=== PATIENT | male | born 1955 | race Caucasian/White ===

== ENCOUNTER 2022-06-26 18:52 | Emergency (ER) | payer OTHER ==
[2022-06-26 19:39] VITALS: BMI 25.0
[2022-06-26 19:52] VITALS: TEMP 99.9
[2022-06-26] MEDS ORDERED: PANTOPRAZOLE SODIUM 40 MG VIAL IVPUSH ONE (19:55)
[2022-06-26] MEDS ORDERED: PANTOPRAZOLE SODIUM 80 MG in SODIUM CHLORIDE 100 ML IVPB SCH (19:56)
[2022-06-26] MEDS ORDERED: PANTOPRAZOLE SODIUM 40 MG VIAL ONE (20:31)
[2022-06-26] MEDS ORDERED: OCTREOTIDE ACETATE 50 MCG/1 ML - 1 ML VIAL IVPUSH ONE (20:56)
[2022-06-26] MEDS ORDERED: OCTREOTIDE ACETATE 200 MCG, OCTREOTIDE ACETATE 1,000 MCG in DEXTROSE 5%-WATER - 496 ML IVPB SCH (21:00)
[2022-06-26 21:10] LABS: BASO % 0.2 % (0-2.0); EOS % 0.9 % (0-4.5); HEMATOCRIT 28.6 % (35.4-49); HEMOGLOBIN 9.4 GM/dL (11.7-16.9); LYMPH % 12.6 % (8-40); MCH 32.5 pg (25.7-33.7); MCHC 32.7 g/dl (32.0-35.9); MEAN CELL VOLUME 99.5 fl (80-96); MEAN PLT VOLUME 8.6 fl (7.5-11.1); MONO % 13.3 % (3.8-10.2); PLATELET COUNT 72 10^3/uL (134-434); RBC 2.87 M/mm3 (4.00-5.60); RDW 18.4 % (11.9-15.9); WHITE BLOOD COUNT 7.3 K/mm3 (4.0-10.0)
[2022-06-26 21:14] LABS: INR 1.88 (0.83-1.09); PROTHROMBIN TIME (PATIENT) 21.8 SEC (9.7-13.0)
[2022-06-26 21:17] LABS: ACTIVATED PTT 34.7 SECONDS (25.2-36.5)
[2022-06-26] MEDS ORDERED: OCTREOTIDE ACETATE 100 MCG/1 ML ONE (21:19)
[2022-06-26 21:41] LABS: ALBUMIN 2.5 g/dl (3.4-5.0); CALCIUM 8.1 mg/dL (8.5-10.1)
[2022-06-26 21:42] LABS: BLOOD UREA NITROGEN 33.4 mg/dL (7-18)
[2022-06-26] MEDS ORDERED: RAPID SEQUENCE INTUBATION KIT NR ONE (21:42)
[2022-06-26 21:44] LABS: CREATININE 0.8 mg/dL (0.55-1.3)
[2022-06-26 21:46] LABS: BILIRUBIN,TOTAL 1.2 mg/dL (0.2-1); LACTIC ACID 3.2 mmol/L (0.4-2.0); TOT PROT 6.8 g/dl (6.4-8.2)
[2022-06-26] MEDS ORDERED: MIDAZOLAM IN 0.9 % SOD.CHLORID 100 MG/100 ML PLAST..BAG IVPB SCH (22:30)
[2022-06-26] MEDS ORDERED: CEFTRIAXONE 1,000 MG in DEXTROSE 5%-WATER - 50 ML IVPB ONE (22:31)
[2022-06-26] MEDS ORDERED: FENTANYL CITRATE/PF 50 MCG/ML VIAL ONE (23:03)
[2022-06-27 00:09] VITALS: RESP 20
[2022-06-27] MEDS ORDERED: MIDAZOLAM HCL 2 MG/2 ML SINGLE DOSE VIAL IVPUSH ONE (00:15)
[2022-06-27 00:18] VITALS: BP 128/71; PULSE 98
== END 2022-06-26 23:31 | disposition short-term general hospital (02) ==
LOC: JER 18:52
PROC: 3E03329 Introduction of Other Anti-infective into Peripheral Vein, Percutaneous Approach (ICD-10-PCS; principal; 2022-06-26)
PROC: 3E033NZ Introduction of Analgesics, Hypnotics, Sedatives into Peripheral Vein, Percutaneous Approach (ICD-10-PCS; 2022-06-26)
PROC: 3E033NZ Introduction of Analgesics, Hypnotics, Sedatives into Peripheral Vein, Percutaneous Approach (ICD-10-PCS; 2022-06-26)
PROC: 3E033GC Introduction of Other Therapeutic Substance into Peripheral Vein, Percutaneous Approach (ICD-10-PCS; 2022-06-26)
PROC: 3E033GC Introduction of Other Therapeutic Substance into Peripheral Vein, Percutaneous Approach (ICD-10-PCS; 2022-06-26)
PROC: 3E033GC Introduction of Other Therapeutic Substance into Peripheral Vein, Percutaneous Approach (ICD-10-PCS; 2022-06-26)
DX: I85.01 Esophageal varices with bleeding (principal); D64.9 Anemia, unspecified; D69.6 Thrombocytopenia, unspecified
CPT/HCPCS: 36415; 36430; 71045-TC-FY; 80053; 82272; 83605; 84484; 85025; 85610; 85730; 86922; 87040; 93005; 93010; 99285-25; P9058

== ENCOUNTER 2022-11-27 10:58 | Emergency (ER) | payer OTHER ==
[2022-11-27 11:05] VITALS: BP 156/68; PULSE 86; RESP 20; TEMP 97.7; BMI 22.4
[2022-11-27] MEDS ORDERED: HYDROCORTISONE 1% TOPICAL OINT 30 GM TUBE TP ONE (11:55)
== END 2022-11-27 12:21 | disposition home or self-care (01) ==
LOC: JERFT 10:58
DX: R21 Rash and other nonspecific skin eruption (principal); L30.9 Dermatitis, unspecified; L29.9 Pruritus, unspecified
CPT/HCPCS: 99283-25